=== PATIENT | male | born 1995 | race Two or more races ===

== ENCOUNTER 2016-09-01 03:34 | Emergency (ER) | payer SELFPAY ==
[~2016-09-01] VITALS: Ht 185.4 cm; Wt 81.6 kg
[2016-09-01 03:40] VITALS: BP 132/77
== END 2016-09-01 04:10 ==
LOC: ER 03:37
DX: F10.120 Alcohol abuse with intoxication, uncomplicated (principal); Z02.89 Encounter for other administrative examinations; V48.5XXA Car driver injured in noncollision transport accident in traffic accident, initial encounter; Y93.89 Activity, other specified; Y99.8 Other external cause status; Y92.410 Unspecified street and highway as the place of occurrence of the external cause